=== PATIENT | female | born 1985 | race Hispanic/Latino ===

== ENCOUNTER 2018-02-11 07:22 | Outpatient (CLI) | payer OTHER ==
[2018-02-11 08:09] LABS: Blood Urea Nitrogen 11 mg/dL (7-17)
--- NOTE | 2018-02-12 07:49 | Magnetic Resonance Report ---
MRI BRAIN WITH/WITHOUT CONTRAST: History: Multiple sclerosis. Comparison: None at this facility. Technique: Multiple T1 and T2 weighted images were obtained in multiple planes. Axial diffusion and gradient imaging was performed. Post contrast T1 images in two planes were obtained following IV gadolinium. Findings: There is an approximate 1.3 cm area of abnormal increased T2 signal in the pericallosal white matter of the left parietal lobe. This is best demonstrated on sagittal T2 image 12. No enhancement following IV gadolinium is detected. This could represent a chronic plaque associated with multiple sclerosis. The remaining brain parenchyma is within normal limits on all sequences. A 4.0 x 2.9 x 1.9 cm CSF signal intensity extra-axial lesion is identified in the left posterior frontal region. This is consistent with an incidental arachnoid cyst. Ventricular size is normal and symmetric. The basal cisterns are clear. The brainstem and cerebellar hemispheres are within normal limits. The fourth ventricle is midline. The optic nerves are within normal limits bilaterally. The paranasal sinuses and mastoid air cells are well aerated. Normal flow voids are identified in the appropriate vessels at the [place]. No abnormal enhancement is identified following IV gadolinium. IMPRESSION: A solitary 1.3 cm pericallosal lesion is identified in the left parietal region as outlined above. This could represent a chronic plaque associated with multiple sclerosis. No abnormal enhancement is detected following IV gadolinium to suggest an acute exacerbation. Arachnoid cyst.
== END 2018-02-11 07:23 | disposition home or self-care (01) ==
LOC: MRI 07:22
PROVIDERS: ATTEND Psychiatry & Neurology Neurology
DX: G35 Multiple sclerosis (principal)
CPT/HCPCS: 36415; 70553; 82565; 84520; A9577